=== PATIENT | female | born 1950 | race Caucasian/White ===

== ENCOUNTER 2017-08-02 14:59 | Outpatient (CLI) | payer MEDICARE, BC ==
--- NOTE | 2017-08-02 16:30 | MRI ---
MRI LUMBAR SPINE WITHOUT CONTRAST: Technique: Multiplanar, multisequence MRI images were obtained of the lumbar spine obtained according to lumbar protocol. Indications: Low back pain. Radiation to right lower extremity. FINDINGS: The lumbar vertebrae maintain height. There is a slight anterolisthesis at L4-5. Mild loss of disc sp karla noted at L3-4 and L4-5. No significant disc bulge seen at L1-2 or L2-3. No central canal or foraminal stenosis at either of t hese levels. Mild facet arthrosis is present at these levels. L3-4: Mild disc bulge. Mild facet and ligamentous hypertrophy. Mild central canal stenosis. L4-5: There is a slight anterolisthesis measuring approximately 3 mm. There is associated broad based disc bulge. There is also a disc herniation at this level with focal disc extrusion centrally. This compresses the thecal sac. This fragment in the anterior spinal canal on axial images measures 11-12 mm AP dimension. This results in moderate to severe central canal stenosis. L5-S1: There is an annular fissure with diffuse disc bulge abutting the thecal sac. No significant ce ntral canal stenosis. IMPRESSION: At L4-5 there is a slight anterolisthesis with broad based bulge and a disc herniation at this level with extruded disc in the spinal canal compressing the thecal sac as described above. POS: JAVIER
== END 2017-08-02 15:00 | disposition home or self-care (01) ==
LOC: MRI 14:59 → SCSMRI 15:00
PROVIDERS: ATTEND Psychiatry & Neurology Neurology
DX: M54.30 Sciatica, unspecified side (principal); M43.16 Spondylolisthesis, lumbar region; M51.26 Other intervertebral disc displacement, lumbar region; M51.86 Other intervertebral disc disorders, lumbar region
CPT/HCPCS: 72148

== ENCOUNTER 2017-11-07 09:20 | Outpatient (CLI) | payer MEDICARE, BC ==
--- NOTE | 2017-11-07 11:25 | RAD ---
LUMBAR SPINE SERIES: Date: 11/07/17 INDICATION: Lumbar radiculopathy. History of prior lumbar surgery. FINDINGS: There is a right side fusion of L4-5. Trace spondylolisthesis at L4-5 present. Intervening L4-5 level disc space prosthesis is present. There are two pedicle screws, one at L4 and one at l5, right-sided , conjoined by vertical cassie. There is a slight degree of right convexity curvature in the lumbar spin e centered at the L2 level. No obvious hardware complication is visualized. There is mild multilevel degenerative change. No compression deformity. IMPRESSION: Postoperative lumbar spine, as described above. POS: JAVIER
== END 2017-11-07 09:21 | disposition home or self-care (01) ==
LOC: TBSIIMAG 09:20
PROVIDERS: ATTEND Neurological Surgery
DX: M54.16 Radiculopathy, lumbar region (principal); Z98.1 Arthrodesis status
CPT/HCPCS: 72100

== ENCOUNTER 2017-12-13 14:58 | Outpatient (CLI) | payer MEDICARE, BC ==
--- NOTE | 2017-12-13 15:56 | RAD ---
TWO VIEWS LUMBAR SPINE: History: Disc degenerative changes. FINDINGS: AP and lateral views obtained. Images demonstrate a right L4-5 surgical hardware with pedicle screws in place. Disc space hardware i s seen at the L4-5 level. No evidence of acute fracture seen. No significant interval changes seen since the previous compariso n radiograph from 11-07-17. IMPRESSION: Right L4-[address] POS: JERSON
== END 2017-12-13 14:59 | disposition home or self-care (01) ==
LOC: TBSIIMAG 14:58
PROVIDERS: ATTEND Neurological Surgery
DX: M51.36 Other intervertebral disc degeneration, lumbar region (principal); Z98.1 Arthrodesis status
CPT/HCPCS: 72100

== ENCOUNTER 2018-03-15 13:10 | Outpatient (CLI) | payer MEDICARE, BC ==
--- NOTE | 2018-03-15 14:46 | RAD ---
LUMBAR SPINE RADIOGRAPH SERIES TWO TO 3 VIEWS: COMPARISON: 12/13/2017. FINDINGS: Right side posterior fusion of L4 and 5 is again demonstrated. There is a stable mild degree of spon dylolisthesis (grade I). Hardware is grossly stable in appearance. There is slight right convexity curvature of the upper to mid lumbar spine, stable. No interval compression fracture. Vascular calc ifications present. IMPRESSION: Stable spondylolisthesis, grade I, L4-5 level with similar appearance of right side posterior fusion hardware. POS: [facility]
== END 2018-03-15 13:11 | disposition home or self-care (01) ==
LOC: TBSIIMAG 13:10
PROVIDERS: ATTEND Neurological Surgery
DX: M54.16 Radiculopathy, lumbar region (principal); M43.16 Spondylolisthesis, lumbar region; Z98.1 Arthrodesis status
CPT/HCPCS: 72100